=== PATIENT | male | born 1945 | race Caucasian/White ===

== ENCOUNTER 2017-08-18 09:37 | Emergency (ER) | payer MEDICARE ==
[~2017-08-18] VITALS: Ht 180.3 cm; Wt 104.3 kg
[~2017-08-18 09:37] MED LIST: AZELASTINE137 MCG/0.; ESIDRIX25 MG PO; FENOFIBRATE145 MG PO; GLIMEPIRIDE2 MG PO; LOSARTAN POTASS25 MG PO; PRAMIPEXOLE PO; PRAVASTATIN SOD40 MG PO; PROAIR HFA8.5 G1; THEODUR200 MG PO; Z.0.ADVAIR 250-501 E IH; Z.0.CRESTOR10 MG PO; Z.0.DIOVAN HCT 80-1 PO; Z.0.FLOVENT DISKUS50 IH; Z.0.LEVOTHYROXINE50 PO; Z.1.KOMBIGLYZE XR1 E PO
[2017-08-18] MEDS ORDERED: ASPIRIN 81 MG CHEW TAB PO ONE (11:30)
--- NOTE | 2017-08-18 12:26 | Diagnostic Imaging Report ---
Exam: Head CT without contrast History: Unsteady gait, rule out CVA Comparison studies: None Technique: Axial images were obtained from the skull base to the vertex. Coronal and sagittal images reconstructed from the axial data. Intravenous contrast: None Findings: Scalp: No abnormalities. Bones: No fractures, blastic or lytic lesions. Brain sulci: Appropriate for age. Ventricles: Normal in size and configuration. No hydrocephalus. Extra-axial spaces: No mass, no fluid collection. 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 Parenchyma: No abnormal densities. No masses, hemorrhage, acute or chronic vascular insults. Sellar/suprasellar region: No abnormalities. Craniocervical junction: Patent foramen magnum. No Chiari one malformation. Incidental findings: Atherosclerotic calcifications in the carotid siphons. IMPRESSION: 1. No acute intracranial abnormalities. 2. Specifically, no mass, acute hemorrhage or acute cortical vascular insults. Signed by: Dr. Shabbir Dubois M.D. on 08/18/2017 12:23 PM
--- NOTE | 2017-08-18 12:45 | Diagnostic Imaging Report ---
PROCEDURE: CHEST SINGLE (PORTABLE) COMPARISON: 04/20/2017. INDICATIONS: CHEST PAIN, COUGH, SOB FINDINGS: The lungs are well-inflated. No focal airspace consolidation, pleural effusion, or pneumothorax. Cardiomediastinal contour is within normal limits for portable, AP technique. Tortuosity and atherosclerotic calcification of the thoracic aorta, unchanged. No overt pulmonary edema. No acute osseous abnormality. CONCLUSION: No acute cardiopulmonary abnormality. Dictated by: Shabbir Peace M.D. on 08/18/2017 at 12:53 Electronically approved by: Shabbir Peace M.D. on 08/18/2017 at 12:53
[2017-08-18 12:56] LABS: BASOPHILS # (AUTO) 0.1 (0.0-0.1); BASOPHILS % 0.7 % (0.0-1.0); EOSINOPHILS # (AUTO) 0.2 (0.0-0.4); EOSINOPHILS % 2.2 % (0.0-6.0); HEMATOCRIT 38.1 % (38.2-49.6); HEMOGLOBIN 12.5 g/dL (14.0-18.0); LYMPHOCYTES # (AUTO) 0.9 (1.0-3.2); LYMPHOCYTES % 12.7 % (18.0-39.1); MEAN CORPUSCULAR HEMOGLOBIN 28.3 pg (28-32); MEAN CORPUSCULAR HGB CONC 32.8 g/dL (31-35); MEAN CORPUSCULAR VOLUME 86.2 fL (81-99); MONOCYTES # (AUTO) 1.5 (0.2-0.8); MONOCYTES % 20.4 % (4.4-11.3); NEUTROPHILS # (AUTO) 4.5 (2.1-6.9); NEUTROPHILS % 63.6 % (38.7-80.0); PLATELET COUNT 242 x10e3/uL (140-360); RED BLOOD COUNT 4.42 x10e6/uL (4.3-5.7); RED CELL DISTRIBUTION WIDTH 13.8 % (11.7-14.4)
[2017-08-18 13:02] LABS: INR 0.88; PROTHROMBIN TIME 12.4 seconds (11.9-14.5)
[2017-08-18 13:03] LABS: PARTIAL THROMBOPLASTIN TIME 31.5 seconds (23.8-35.5)
[2017-08-18 13:05] LABS: BILIRUBIN,URINE NEGATIVE (NEGATIVE); KETONES,URINE NEGATIVE (NEGATIVE); LEUKOCYTE ESTERASE ,URINE NEGATIVE (NEGATIVE); NITRITE,URINE NEGATIVE (NEGATIVE); PROTEIN,URINE DIPSTICK NEGATIVE (NEGATIVE); URINE UROBILINOGEN 0.2 mg/dL (0.2 - 1)
[2017-08-18 13:10] LABS: ALBUMIN 3.7 g/dL (3.5-5.0); ALBUMIN/GLOBULIN RATIO 1.1 (0.8-2.0); ANION GAP 15.1 mmol/L (8-16); CALCIUM 9.5 mg/dL (8.4-10.2); CREATININE, SERUM 1.53 mg/dL (0.72-1.25); POTASSIUM 4.1 mmol/L (3.5-5.1)
[2017-08-18 13:13] LABS: CLARITY,URINE SL CLOUDY (CLEAR); COLOR,URINE YELLOW (YELLOW)
[2017-08-18 13:18] LABS: TROPONIN I 0.01 ng/mL (0-0.300)
[2017-08-18 13:27] LABS: AMPHETAMINES SCREEN,URINE NEGATIVE (NEGATIVE); BENZODIAZEPINES SCREEN,URINE NEGATIVE (NEGATIVE); PHENCYCLIDINE SCREEN,URINE NEGATIVE (NEGATIVE)
[2017-08-18 13:28] LABS: CANNABINOIDS SCREEN,URINE NEGATIVE (NEGATIVE)
[2017-08-18 13:31] LABS: BACTERIA,URINE RARE /HPF; EPITHELIAL CELLS,URINE RARE /LPF; WBC,URINE (MAN) 0-5 /HPF (0-5)
[2017-08-18 14:19] VITALS: BP 158/83
== END 2017-08-18 14:44 | disposition home or self-care (01) ==
LOC: ER 09:37
DX: R26.2 Difficulty in walking, not elsewhere classified (principal); J09.X2 Influenza due to identified novel influenza A virus with other respiratory manifestations; E11.9 Type 2 diabetes mellitus without complications; J98.4 Other disorders of lung
CPT/HCPCS: 36415; 70450; 71010; 80053; 80307; 81001; 82550; 82553; 84484; 85025; 85610; 85730; 87086; 87400; 93005; 99284

== ENCOUNTER → 2018-05-14 | Day surgery (SDC) | payer MEDICARE ==
[2018-05-13 11:48] LABS: BASOPHILS % 0.4 % (0.0-1.0); EOSINOPHILS # (AUTO) 0.3 (0.0-0.4); EOSINOPHILS % 3.8 % (0.0-6.0); HEMATOCRIT 38.2 % (38.2-49.6); HEMOGLOBIN 12.9 g/dL (14.0-18.0); LYMPHOCYTES # (AUTO) 1.5 (1.0-3.2); LYMPHOCYTES % 20.8 % (18.0-39.1); MEAN CORPUSCULAR HEMOGLOBIN 28.9 pg (28-32); MEAN CORPUSCULAR HGB CONC 33.8 g/dL (31-35); MEAN CORPUSCULAR VOLUME 85.5 fL (81-99); MONOCYTES % 13.2 % (4.4-11.3); NEUTROPHILS # (AUTO) 4.4 (2.1-6.9); NEUTROPHILS % 61.2 % (38.7-80.0); PLATELET COUNT 237 x10e3/uL (140-360); RED BLOOD COUNT 4.47 x10e6/uL (4.3-5.7); RED CELL DISTRIBUTION WIDTH 12.9 % (11.7-14.4)
[~2018-05-14] MED LIST changes: +AMLODIPINE BESYL5 MG PO; +DIOVAN HCT 3201 EACH PO; +LANTUS 3ML100 UNITS/ SC; +LEVOTHYROXINE100 MC1 PO; +LIDOCAINE HCL 2% LOCAL INJ 5 ML SDV VIAL INJ ONE; +METFORMIN HCL500 MG PO; +PRAMIPEXOLE D0.25 MG PO; +PRANDIN1 MG PO; +PROPOFOL IV EMULSION 10 MG/ML 50 ML VIAL IV ONE; +SYMBICORT 16010.2 GM INH; +VENTOLIN HFA18 GM INH
[2018-05-14 10:10] VITALS: BP 102/59
== END | disposition home or self-care (01) ==
LOC: OR 05:55
PROVIDERS: ATTEND Internal Medicine Gastroenterology
DX: Z09 Encounter for follow-up examination after completed treatment for conditions other than malignant neoplasm (principal); D12.0 Benign neoplasm of cecum; D12.3 Benign neoplasm of transverse colon; D12.5 Benign neoplasm of sigmoid colon; K57.30 Diverticulosis of large intestine without perforation or abscess without bleeding; K64.8 Other hemorrhoids; Z71.3 Dietary counseling and surveillance; E66.01 Morbid (severe) obesity due to excess calories; I10 Essential (primary) hypertension; E11.9 Type 2 diabetes mellitus without complications; E03.9 Hypothyroidism, unspecified; G47.33 Obstructive sleep apnea (adult) (pediatric); J45.909 Unspecified asthma, uncomplicated; Z01.810 Encounter for preprocedural cardiovascular examination; Z01.812 Encounter for preprocedural laboratory examination; Z79.4 Long term (current) use of insulin; Z68.41 Body mass index [BMI] 40.0-44.9, adult; Z85.46 Personal history of malignant neoplasm of prostate
CPT/HCPCS: 36415 ×2; 45385; 82948; 85025; 93005; J2001

== ENCOUNTER 2019-04-13 22:34 | Emergency (ER) | payer MEDICARE ==
[~2019-04-13] VITALS: Ht 180.3 cm; Wt 111.1 kg
[~2019-04-13 22:34] MED LIST changes: -LIDOCAINE HCL 2% LOCAL INJ 5 ML SDV VIAL INJ ONE; -PROPOFOL IV EMULSION 10 MG/ML 50 ML VIAL IV ONE
--- OUTSIDE RECORDS SUMMARY | 2019-04-13 22:38 | XMS REPORT | Clinical Summary ---
Author Author [facility] Organization [facility] Address Unknown Phone Unavailable Care Team Providers Care Multi Media Specialist Name Role Phone Asked, No Pcp PCP Unavailable Allergies No Known Allergies Medications End Date Status Medication Sig Dispensed Refills Start Date Active valsartan-hydrochlorothia Take 1 tablet 0 zide (DIOVAN-HCT) 320-25 by mouth mg per tablet daily. Active pravastatin (PRAVACHOL) Take 40 mg by 0 40 MG tablet mouth daily. Active fenofibrate (LOFIBRA) 160 Take 160 mg 0 MG tablet by mouth daily. Active pramipexole (MIRAPEX) 0.5 Take 0.5 mg 0 MG tablet by mouth 2 (two) times a day. Active levothyroxine (SYNTHROID, Take 100 mcg 0 LEVOXYL) 100 mcg tablet by mouth daily. Active metFORMIN (GLUCOPHAGE) Take 1,000 mg 0 1,000 mg tablet by mouth 2 (two) times a day with meals. Active albuterol (PROAIR Inhale 2 0 HFA,PROVENTIL puffs 2 (two) HFA,VENTOLIN HFA) 90 times a day. mcg/actuation inhaler Active budesonide-formoterol Inhale 2 0 (SYMBICORT) 160-4.5 puffs daily. mcg/actuation inhaler Active amLODIPine (NORVASC) 5 mg Take 5 mg by 0 tablet mouth daily. Active insulin lispro Inject 35 0 protamin-lispro (HumaLOG Units under 75-25) 100 unit/mL the skin 2 (75-25) suspension (two) times a day before meals. Active Problems Not on file Encounters Care Team Description Date Type Specialty Reyna Ag MD Essential hypertension (Primary Dx); Acute nonintractable headache, unspecified headache type 07/09/2018 Emergency Emergency Medicine after 04/12/2018 Social History Date Tobacco Use Types Packs/Day Years Used Never Smoker Smokeless Tobacco: Never Used Alcohol Use Drinks/Week oz/Week Comments No Sex Assigned at Date Recorded Not on file Industry Job Start Date Occupation Not on file Not on file Not on file Travel End Travel History Travel Start No recent travel history available. Last Filed Vital Signs Time Taken Vital Sign Reading 07/09/2018 7:45 PM CALL OR CONTACT CENTRE MANAGER Blood Pressure 162/75 07/09/2018 7:45 PM CALL OR CONTACT CENTRE MANAGER Pulse 70 07/09/2018 7:45 PM CALL OR CONTACT CENTRE MANAGER Temperature 37.7 C (99.9 F) 07/09/2018 7:45 PM CALL OR CONTACT CENTRE MANAGER Respiratory Rate 22 07/09/2018 7:45 PM CALL OR CONTACT CENTRE MANAGER Oxygen Saturation 96% - Inhaled Oxygen - Concentration 07/09/2018 4:45 PM CALL OR CONTACT CENTRE MANAGER Weight 113 kg (250 lb) 07/09/2018 4:45 PM CALL OR CONTACT CENTRE MANAGER Height 180.3 cm (5' 11") 07/09/2018 4:45 PM CALL OR CONTACT CENTRE MANAGER Body Mass Index 34.87 Plan of Treatment Not on file Procedures Comments Procedure Name Priority Date/Time Associated Diagnosis ESTIMATED GFR STAT 07/09/2018 5:55 PM CALL OR CONTACT CENTRE MANAGER TROPONIN STAT 07/09/2018 5:55 PM CALL OR CONTACT CENTRE MANAGER CREATINE KINASE, TOTAL STAT 07/09/2018 (CPK) 5:55 PM CALL OR CONTACT CENTRE MANAGER COMPREHENSIVE METABOLIC STAT 07/09/2018 PANEL 5:55 PM CALL OR CONTACT CENTRE MANAGER HC COMPLETE BLD COUNT STAT 07/09/2018 W/AUTO DIFF 5:55 PM CALL OR CONTACT CENTRE MANAGER ECG ED PRELIMINARY Routine 07/09/2018 INTERPRETATION 5:26 PM CALL OR CONTACT CENTRE MANAGER ECG 12-LEAD STAT 07/09/2018 5:19 PM CALL OR CONTACT CENTRE MANAGER after 04/12/2018 Results * Estimated GFR (07/09/2018 5:55 PM CALL OR CONTACT CENTRE MANAGER) Estimated GFR 59 (A) mL/min/1.73 m2 [facility] Comment: OF PATHOLOGY CatergoryUnitsInte AND GENOMIC rpretation MEDICINE G1 >=90 Normal or high G2 60-89Mildly decreased [id number] Mildly to moderately decreased [id number] Moderately to severely decreased G4 15-29Severely decreased G5 <15Kidney failure The eGFR was calculated using the Chronic Kidney Disease Epidemiology Collaboration (CKD-EPI) equation. Interpretation is based on recommendations of the National Kidney Foundation-Kidney Disease Outcomes Quality Initiative (NKF-KDOQI) published in 2014. Specimen Plasma specimen Performing Organization Address City/State/Zipcode Phone Number [facility] [address] [place] [address] PATHOLOGY AND [employer] MEDICINE * Troponin (07/09/2018 5:55 PM CALL OR CONTACT CENTRE MANAGER) Pathologist [facility] Troponin <0.30 0.00 - 0.30 ng/mL [facility] Comment: OF PATHOLOGY 0.11 - 1.49 AND GENOMIC [place] indicate increased risk of acute coronary syndrome. >=1.5 ng/ml Consistent with acute myocardial infarction. The diagnostic value of a single normal or non-diagnostic result is questionable.Serial samples at 2-6 hour intervals are required to rule out acute myocardial injury. Specimen Plasma specimen Performing Organization Address City/[facility]/Zipcode Phone Number [facility] [address] [place] [address] PATHOLOGY AND [employer] MEDICINE * CBC with platelet and differential (07/09/2018 5:55 PM CALL OR CONTACT CENTRE MANAGER) [facility] WBC 8.2 4.2 - 11.0 k/uL [facility] OF PATHOLOGY AND GENOMIC MEDICINE RBC 4.11 4.04 - 5.86 m/uL [facility] OF PATHOLOGY AND GENOMIC MEDICINE HGB 11.7 (L) 13.0 - 17.3 g/dL [facility] OF PATHOLOGY AND GENOMIC MEDICINE HCT 35.2 34.0 - 45.0 % [facility] OF PATHOLOGY AND GENOMIC MEDICINE MCV 85.6 80.0 - 98.0 fL [facility] OF PATHOLOGY AND GENOMIC MEDICINE MCH 28.5 27.0 - 34.0 pg [facility] DE[facility] OF PATHOLOGY AND GENOMIC MEDICINE MCHC 33.2 31.5 - 36.5 g/dL [facility] OF PATHOLOGY AND GENOMIC MEDICINE RDW - SD 40.9 37.0 - 51.0 fL [facility] OF PATHOLOGY AND GENOMIC MEDICINE MPV 9.7 7.4 - 10.4 fL [facility] OF PATHOLOGY AND GENOMIC MEDICINE Platelet count 280 150 - 400 k/uL [facility] OF PATHOLOGY AND GENOMIC MEDICINE Nucleated RBC 0.00 /100 WBC [facility] OF PATHOLOGY AND GENOMIC MEDICINE Neutrophils 67.2 (H) 36.0 - 66.0 % [facility] OF PATHOLOGY AND GENOMIC MEDICINE Lymphocytes 17.6 (L) 24.0 - 44.0 % [facility] OF PATHOLOGY AND GENOMIC MEDICINE Monocytes 12.5 (H) 0.0 - 6.0 % [facility] OF PATHOLOGY AND GENOMIC MEDICINE Eosinophils 1.6 0.0 - 6.0 % [facility] OF PATHOLOGY AND GENOMIC MEDICINE Basophils 0.6 0.0 - 1.2 % [facility] OF PATHOLOGY AND GENOMIC MEDICINE Immature 0.5 0.0 - 1.0 % [facility] granulocytes OF PATHOLOGY AND GENOMIC MEDICINE Specimen Blood Performing Organization Address City/[facility]/[place] [address] PATHOLOGY AND GENOMIC MEDICINE * Creatine kinase, total (CPK) (07/09/2018 5:55 PM CALL OR CONTACT CENTRE MANAGER) Pathologist [facility] Creatine kinase 138 39 - 308 U/L [facility] PATHOLOGY AND GENOMIC MEDICINE Specimen Plasma specimen Performing Organization Address City/[facility] [place] [address] PATHOLOGY [facility] * Comprehensive metabolic panel (07/09/2018 5:55 PM CALL OR CONTACT CENTRE MANAGER) Sodium 133 (L) 135 - 150 mEq/L [facility] DE[facility] OF PATHOLOGY AND GENOMIC MEDICINE Potassium 4.1 3.5 - 5.0 mEq/L [facility] OF PATHOLOGY AND GENOMIC MEDICINE Chloride 95 (L) 98 - 112 mEq/L [facility] OF PATHOLOGY AND GENOMIC MEDICINE CO2 22 (L) 24 - 31 mmol/L [facility] OF PATHOLOGY AND GENOMIC MEDICINE Anion gap 16@ANIO (H) 7 - 15 mEq/L [facility] OF PATHOLOGY AND GENOMIC MEDICINE BUN 25 (H) 7 - 18 mg/dL [facility] OF PATHOLOGY AND GENOMIC MEDICINE Creatinine 1.20 0.70 - 1.20 mg/dL [facility] OF PATHOLOGY AND GENOMIC MEDICINE Glucose 246 (H) 65 - 100 mg/dL [facility] OF PATHOLOGY AND GENOMIC MEDICINE Calcium 9.7 8.8 - 10.2 mg/dL [facility] OF PATHOLOGY AND GENOMIC MEDICINE Protein 6.5 6.3 - 8.3 g/dL [facility] OF PATHOLOGY AND GENOMIC MEDICINE Albumin 3.3 (L) 3.5 - 5.0 g/dL [facility] OF PATHOLOGY AND GENOMIC MEDICINE A/G ratio 1.0 0.7 - 3.8 [facility] OF PATHOLOGY AND GENOMIC MEDICINE Alkaline 59 0 - 129 U/L [facility] phosphatase OF PATHOLOGY AND GENOMIC MEDICINE AST 13 10 - 50 U/L [facility] OF PATHOLOGY AND GENOMIC MEDICINE ALT 19 5 - 50 U/L [facility] OF PATHOLOGY AND GENOMIC MEDICINE Total bilirubin <0.3 0.2 - 1.2 mg/dL [facility] OF PATHOLOGY AND GENOMIC MEDICINE Specimen Plasma specimen Performing Organization Address City/State/Zipcode Phone Number [facility] [address] [place] [address] PATHOLOGY AND GENOMIC MEDICINE * ECG ED Preliminary Interpretation - NOT AN ORDER (07/09/2018 5:26 PM CALL OR CONTACT CENTRE MANAGER) Narrative Performed At Reyna Ag MD 07/10/20183:01 PM ECG ED Preliminary Interpretation - Not an Order Performed by: REYNA AG Authorized by: REYNA AG ECG reviewed by ED Physician in the absence of a milking machine operator: yes Interpretation: Interpretation: abnormal Rate: ECG rate:79 ECG rate assessment: normal Rhythm: Rhythm: sinus rhythm Ectopy: Ectopy: none QRS: QRS axis:Normal QRS intervals:Normal Conduction: Conduction: abnormal Abnormal conduction: LAFB ST segments: ST segments:Normal T waves: T waves: normal * ECG 12 lead (07/09/2018 5:19 PM CALL OR CONTACT CENTRE MANAGER) Ventricular 79 [facility] rate Atrial rate 79 [facility] UT interval 166 [facility] QRSD interval 90 [facility] QT interval 354 [facility] QTC interval 405 [facility] P axis 1 16 [facility] QRS axis 1 -49 [facility] T wave axis 27 [facility] EKG impression Normal sinus rhythm-Left [facility] anterior fascicular block-Abnormal ECG-In automated comparison with ECG of 01-NOV-2013 17:55,-No significant change was found- Specimen Performing Organization Address City/State/Zipcode Phone Number [facility] MUSE [address] [place] [address] after 04/12/2018 Insurance Type Payer Benefit Subscriber ID Effective Phone Address Plan / Dates Group Medicare MEDICARE MEDICARE xxxxxxxxxxx 2010-P [place], PART A AND resent [place] B Commercial AARP AARP xxxxxxxxxxx 2017-P SUPPLEMENT resent Advance Directives Patient has advance care planning documents on file. For more information, santi e contact: Kenney Ordonez [address] [place] [address]
[2019-04-13] MEDS ORDERED: ALBUTEROL SULF 0.083% NEB SOLN 3 ML NEB NEB STA (22:51)
[2019-04-13] MEDS ORDERED: IPRATROPIUM BROMIDE 0.02% 2.5 ML NEB NEB ONE (23:00)
[2019-04-13] MEDS ORDERED: ALBUTEROL SULF 0.083% NEB SOLN 3 ML NEB ONE (23:02)
[2019-04-13 23:09] LABS: BASOPHILS % 0.5 % (0.0-1.0); EOSINOPHILS # (AUTO) 0.1 (0.0-0.4); EOSINOPHILS % 0.6 % (0.0-6.0); HEMATOCRIT 34.5 % (38.2-49.6); HEMOGLOBIN 11.2 g/dL (14.0-18.0); LYMPHOCYTES # (AUTO) 0.9 (1.0-3.2); LYMPHOCYTES % 10.8 % (18.0-39.1); MEAN CORPUSCULAR HEMOGLOBIN 27.2 pg (28-32); MEAN CORPUSCULAR HGB CONC 32.5 g/dL (31-35); MEAN CORPUSCULAR VOLUME 83.7 fL (81-99); MONOCYTES # (AUTO) 1.1 (0.2-0.8); MONOCYTES % 13.1 % (4.4-11.3); NEUTROPHILS % 74.5 % (38.7-80.0); PLATELET COUNT 268 x10e3/uL (140-360); RED BLOOD COUNT 4.12 x10e6/uL (4.3-5.7); RED CELL DISTRIBUTION WIDTH 14.1 % (11.7-14.4)
[2019-04-13 23:29] LABS: ALBUMIN 3.4 g/dL (3.5-5.0); ANION GAP 14.2 mmol/L (8-16); CALCIUM 9.9 mg/dL (8.4-10.2); CREATININE, SERUM 1.56 mg/dL (0.72-1.25); POTASSIUM 4.2 mmol/L (3.5-5.1)
[2019-04-13 23:35] LABS: CREATINE KINASE MB 1.1 ng/mL (0-5.0)
--- NOTE | 2019-04-14 | Diagnostic Imaging Report ---
A single frontal view of the chest. HISTORY: Shortness of breath, asthma COMPARISON: None available. DISCUSSION: Portable technique, limits sensitivity of the exam. Soft tissue attenuation partially limits sensitivity of the exam. Tubes/Lines: None Lungs and pleura: Low lung volumes result in bibasilar vascular crowding, accentuation of the pulmonary interstitial markings, central pulmonary vasculature, and the cardiac silhouette. Allowing for these limitations, the findings are as follows: Mild bibasilar atelectasis, left greater than right, which partially limits evaluation of the lung bases. Otherwise, no evidence of a consolidative pneumonia or pulmonary alveolar edema. No definite pleural effusion or pneumothorax is identified. Heart and mediastinum: The cardiomediastinal silhouette appear(s) unremarkable. Bones and soft tissues: Appear unremarkable, given this limited exam. IMPRESSION: Persistent low lung volumes with mild bibasilar atelectasis, left greater than right. Signed by: Dr. Deion Monroe D.O., M.M.M. on 04/13/2019 11:56 PM
[2019-04-14 00:22] VITALS: BP 134/58
== END 2019-04-14 00:36 | disposition home or self-care (01) ==
LOC: ER 22:34
DX: R06.02 Shortness of breath (principal); R05 Cough; J45.909 Unspecified asthma, uncomplicated; I10 Essential (primary) hypertension; E11.9 Type 2 diabetes mellitus without complications; E03.9 Hypothyroidism, unspecified; Z85.46 Personal history of malignant neoplasm of prostate
CPT/HCPCS: 36415; 71045; 80053; 82550; 82553; 83880; 84484; 85025; 93005; 94640; 99284

== ENCOUNTER 2019-06-07 14:01 | Outpatient (RCR) | payer MEDICARE ==
[2019-06-07] MEDS ORDERED: LIDOCAINE VISC 2% SOLN 15 ML UDC ONE (16:48)
[2019-06-07] MEDS ORDERED: MUPIROCIN 2% OINT 22 GM TUBE ONE (16:48)
== END 2019-07-01 ==
LOC: WCC 14:01
PROVIDERS: ATTEND Plastic Surgery
DX: E11.65 Type 2 diabetes mellitus with hyperglycemia (principal); E11.8 Type 2 diabetes mellitus with unspecified complications; I87.332 Chronic venous hypertension (idiopathic) with ulcer and inflammation of left lower extremity; I87.331 Chronic venous hypertension (idiopathic) with ulcer and inflammation of right lower extremity; L97.821 Non-pressure chronic ulcer of other part of left lower leg limited to breakdown of skin; L97.811 Non-pressure chronic ulcer of other part of right lower leg limited to breakdown of skin; R60.0 Localized edema; I87.2 Venous insufficiency (chronic) (peripheral); I10 Essential (primary) hypertension; E03.9 Hypothyroidism, unspecified; E78.5 Hyperlipidemia, unspecified; J45.909 Unspecified asthma, uncomplicated

== ENCOUNTER 2020-11-27 15:47 | Outpatient (RCR) | payer MEDICARE ==
[~2020-11-27 15:47] MED LIST changes: +FLUOCINONIDE 0.05% 1 EA/15 GM TUBE ONE; +LIDOCAINE VISC 2% SOLN 15 ML UDC ONE; +MINERAL OIL/PETROLAT/GLYCERI 2OZ CRM ONE; +MINERAL OIL/PETROLAT/GLYCERI 6OZ BTL ONE; +TRYPSIN/BALSAM PERU/CASTOR OIL ONE
== END 2020-11-29 ==
LOC: WCC 15:47
PROVIDERS: ATTEND Internal Medicine Infectious Disease
DX: E11.8 Type 2 diabetes mellitus with unspecified complications (principal); E11.65 Type 2 diabetes mellitus with hyperglycemia; L97.811 Non-pressure chronic ulcer of other part of right lower leg limited to breakdown of skin; I87.331 Chronic venous hypertension (idiopathic) with ulcer and inflammation of right lower extremity; I87.2 Venous insufficiency (chronic) (peripheral); I10 Essential (primary) hypertension; I50.9 Heart failure, unspecified; J45.909 Unspecified asthma, uncomplicated

== ENCOUNTER 2020-12-11 14:54 | Outpatient (RCR) | payer MEDICARE ==
[~2020-12-11 14:54] MED LIST changes: -FLUOCINONIDE 0.05% 1 EA/15 GM TUBE ONE; -LIDOCAINE VISC 2% SOLN 15 ML UDC ONE; -MINERAL OIL/PETROLAT/GLYCERI 2OZ CRM ONE; -MINERAL OIL/PETROLAT/GLYCERI 6OZ BTL ONE; -TRYPSIN/BALSAM PERU/CASTOR OIL ONE
== END 2020-12-29 ==
LOC: WCC 14:54
PROVIDERS: ATTEND Internal Medicine Infectious Disease
DX: E11.8 Type 2 diabetes mellitus with unspecified complications (principal); E11.65 Type 2 diabetes mellitus with hyperglycemia; I87.2 Venous insufficiency (chronic) (peripheral); R60.0 Localized edema; I10 Essential (primary) hypertension; I50.9 Heart failure, unspecified; E78.5 Hyperlipidemia, unspecified; J45.909 Unspecified asthma, uncomplicated; E03.9 Hypothyroidism, unspecified

== ENCOUNTER → 2021-04-05 | Day surgery (SDC) | payer MEDICARE ==
[~2021-04-05] MED LIST changes: +BUDESONIDE EC3 MG PO; +CARVEDILOL12.5 MG PO; +DIOVAN160 MG PO; +HUMALOG MI100 UNIT/2 SQ; +LIDOCAINE HCL 2% LOCAL INJ 5 ML SDV VIAL INJ ONE; +METOLAZONE5 MG PO; +PROPOFOL IV EMULSION 10 MG/ML 20 ML VIAL ONE; +SPIRONOLACTONE25 MG PO; +TOUJEO MAX300 UNIT/1 PO
[2021-04-05 09:15] VITALS: BP 129/69
== END | disposition home or self-care (01) ==
LOC: OR 06:07
PROVIDERS: ATTEND Internal Medicine Gastroenterology
DX: C18.0 Malignant neoplasm of cecum (principal); D12.2 Benign neoplasm of ascending colon; D12.3 Benign neoplasm of transverse colon; D12.4 Benign neoplasm of descending colon; K57.30 Diverticulosis of large intestine without perforation or abscess without bleeding; K64.8 Other hemorrhoids; D50.0 Iron deficiency anemia secondary to blood loss (chronic); E11.9 Type 2 diabetes mellitus without complications; I10 Essential (primary) hypertension; E66.9 Obesity, unspecified; Z68.39 Body mass index [BMI] 39.0-39.9, adult; Z86.010 Personal history of colon polyps; F32.9 Major depressive disorder, single episode, unspecified; I25.2 Old myocardial infarction; E78.00 Pure hypercholesterolemia, unspecified; Z86.73 Personal history of transient ischemic attack (TIA), and cerebral infarction without residual deficits; Z87.442 Personal history of urinary calculi; Z01.810 Encounter for preprocedural cardiovascular examination; Z01.812 Encounter for preprocedural laboratory examination; K29.50 Unspecified chronic gastritis without bleeding
CPT/HCPCS: 36415; 43239; 45385; 82948; 93005; J2001; J2704; U0002; 45378; 45380

== ENCOUNTER → 2022-06-13 | Day surgery (SDC) | payer MEDICARE ==
[2022-06-10 09:02] LABS: BASOPHILS % 0.4 % (0.0-1.0); EOSINOPHILS # (AUTO) 0.3 (0.0-0.4); EOSINOPHILS % 2.8 % (0.0-6.0); HEMATOCRIT 36.9 % (38.2-49.6); HEMOGLOBIN 11.4 g/dL (14.0-18.0); LYMPHOCYTES # (AUTO) 1.8 (1.0-3.2); MEAN CORPUSCULAR HEMOGLOBIN 28.7 pg (28-32); MEAN CORPUSCULAR HGB CONC 30.9 g/dL (31-35); MEAN CORPUSCULAR VOLUME 92.9 fL (81-99); MONOCYTES # (AUTO) 1.3 (0.2-0.8); MONOCYTES % 14.7 % (4.4-11.3); NEUTROPHILS # (AUTO) 5.6 (2.1-6.9); NEUTROPHILS % 61.4 % (38.7-80.0); PLATELET COUNT 268 x10e3/uL (140-360); RED BLOOD COUNT 3.97 x10e6/uL (4.3-5.7); RED CELL DISTRIBUTION WIDTH 14.7 % (11.7-14.4)
[~2022-06-13] MED LIST changes: +ACETAMINOPHEN-1 EAC4; +ATORVASTATIN CA20 MG PO; +BUMETANIDE1 MG PO; +FLONASE ALLERG9.9 ML INH; -LIDOCAINE HCL 2% LOCAL INJ 5 ML SDV VIAL INJ ONE; +NEURONTIN300 MG PO; -PROPOFOL IV EMULSION 10 MG/ML 20 ML VIAL ONE
[2022-06-13 07:50] VITALS: BP 120/75
== END | disposition home or self-care (01) ==
LOC: OR 07:56
PROVIDERS: ATTEND Internal Medicine Gastroenterology
DX: K57.32 Diverticulitis of large intestine without perforation or abscess without bleeding (principal); D12.3 Benign neoplasm of transverse colon; K64.8 Other hemorrhoids; E11.9 Type 2 diabetes mellitus without complications; G47.33 Obstructive sleep apnea (adult) (pediatric); J45.909 Unspecified asthma, uncomplicated; I10 Essential (primary) hypertension; E78.5 Hyperlipidemia, unspecified; Z01.810 Encounter for preprocedural cardiovascular examination; Z01.812 Encounter for preprocedural laboratory examination; Z79.4 Long term (current) use of insulin; Z79.899 Other long term (current) drug therapy
CPT/HCPCS: 36415; 45378; 82948; 85025; 88305; 93005